=== PATIENT | female | born 1970 | race Caucasian/White ===

== ENCOUNTER 2016-09-30 10:04 | Emergency (ER) | payer BC ==
[2016-09-30 10:12] VITALS: BP 125/65
--- NOTE | 2016-09-30 10:14 | UC ---
Hand/Wrist HPI - HPI Summary HPI Summary: 45 y/o female with crush injury to L middle finger after accident disconnecting hay wagon from tractor. Patient states immediate pain, swelling with blood blister to plantar aspect of finger. + movement however painful, sensation intact. Prior injury to finger in past when crushed between wagon and tractor. no other medication complaints, no other pains/ injuries. no open wound - History Of Current Complaint Chief Complaint: UCUpperExtremity Stated Complaint: LEFT MIDDLE FINGER PAIN Hx Obtained From: Patient Hx Last Menstrual Period: 09/28/16 Onset/Duration: Sudden Onset, Lasting Minutes Severity Initially: Moderate Severity Currently: Moderate Aggravating Factor(s): Movement, Lifting, Flexion, Extension Alleviating: Rest Associated Signs And Symptoms: Positive: Swelling, Redness, Bruising, Numbness/ Tingling - Allergies/Home Medications Allergies/Adverse Reactions: Allergies Allergy/AdvReac Type Severity Reaction Status Date / Time Penicillins Allergy Hives Verified 09/30/16 10:12 Home Medications: Home Medications Cholecalciferol [Vitamin D3 Super Strength] 2,000 unit PO DAILY 09/30/16 [ History Confirmed 09/30/16] Cyclobenzaprine TAB* [Flexeril 10 MG TAB*] 10 mg PO TID PRN 09/30/16 [History Confirmed 09/30/16] Fluticasone NASAL SPRAY 50MCG* [Flonase NASAL SPRAY 50MCG*] 1 spray NASAL DAILY 09/30/16 [History Confirmed 09/30/16] PMH/Surg Hx/FS Hx/Imm Hx Previously Healthy: Yes - Surgical History Surgical History: Yes Surgery Procedure, Year, and Place: carpal tunnel bilat - Family History Known Family History: Negative: Diabetes - Social History Alcohol Use: None Substance Use Type: None Smoking Status (MU): Never Smoked Tobacco Review of Systems Constitutional: Negative Skin: Negative Eyes: Negative ENT: Negative Respiratory: Negative Cardiovascular: Negative Gastrointestinal: Negative Genitourinary: Negative Motor: Decreased ROM, Weakness Neurovascular: Decreased Sensation Musculoskeletal: Arthralgia, Decreased ROM, Edema Neurological: Negative Psychological: Negative All Other Systems Reviewed And Are Negative: Yes Physical Exam Triage Information Reviewed: Yes Appearance: Well-Appearing, Well-Nourished, Pain Distress - minimal at rest, moderate with movement. Vital Signs: Initial Vital Signs Temp 98.5 F 09/30/16 10:08 Pulse 79 09/30/16 10:08 Resp 14 09/30/16 10:08 BP 125/65 09/30/16 10:08 Pulse Ox 100 09/30/16 10:08 Vital Signs Reviewed: Yes Skin: Positive: significant lesion(s) - + edema PIP L middle finger, with blood blister at plantar aspect, + tender to light palpation, decreased ROM with flex / ext for DIP, PIP due to pain, strength 2/5 however all joints in L hand able to move AROM. rad, ulnar pulses 2+ L, sensation grossly intact, decreased over L middle DIP. Hand/Wrist Course/Dx - Course Course Of Treatment: x-ray negative for fracture, koban dressing placed to decrease swelling/ limit movement. motrin for pain control, follow up with ortho/ pcp within 1 week if no improvement, increased pain, or decreased, movement. - Differential Dx/Diagnosis Differential Diagnosis/HQI/PQRI: Contusion, Dislocation, Fracture, Sprain, Strain Provider Diagnoses: crush injury/ contusion L middle finger Discharge - Discharge Plan Condition: Good Disposition: HOME Patient Education Materials: Contusion in Adults (ED), RICE Therapy (ED) Referrals: Anabella Fong MD [Primary Care Provider] - Additional Instructions: - wrap for comfort, elevate and ice - motrin/ tylenol as needed for pain
--- NOTE | 2016-09-30 10:47 | RAD ---
INDICATION: Left third digit injury COMPARISON: None TECHNIQUE: AP, lateral, and oblique views were obtained. FINDINGS: The bony structures, joint spaces, and soft tissues are normal for age. IMPRESSION: NEGATIVE EXAMINATION.
--- NOTE | 2016-09-30 10:48 | RAD ---
INDICATION: Left hand injury COMPARISON: Left third digit same date TECHNIQUE: AP, lateral, and oblique views were obtained. FINDINGS: The bony structures, joint spaces, and soft tissues are normal for age. IMPRESSION: NEGATIVE EXAMINATION
== END 2016-09-30 11:13 | disposition home or self-care (01) ==
LOC: UCCORT 10:04
DX: S60.032A Contusion of left middle finger without damage to nail, initial encounter (principal); W30.89XA Contact with other specified agricultural machinery, initial encounter; Y93.89 Activity, other specified; Y92.9 Unspecified place or not applicable; Z88.0 Allergy status to penicillin
CPT/HCPCS: 73140; 99211; G0463